=== PATIENT | male | born 1980 | race Asian ===

== ENCOUNTER 2017-12-08 15:14 | Emergency (ER) | payer OTHER ==
[2017-12-08 16:55] LABS: ABS Basophils 0.1 10^3/ul (0-0.2); ABS Eosinophils 0.1 10^3/ul (0-0.6); ABS Lymphocytes 1.2 10^3/ul (1.0-4.8); ABS Monocytes 0.3 10^3/ul (0-0.8); ABS Neutrophils 6.5 10^3/ul (1.5-7.7); ABS Nucleated RBC 0 10^3/ul; Eosinophil % 1.7 % (0-6); Hematocrit 43 % (42-52); Hemoglobin 14.4 g/dl (14.0-18.0); Lymphocyte % 14.8 % (25-47); Mean Corpuscular HGB Conc 33 g/dl (31-36); Mean Corpuscular Hemoglobin 27 pg (27-31); Mean Corpuscular Volume 81 fL (80-94); Mean Platelet Volume 7.3 um3 (7.4-10.4); Nucleated Red Blood Cells % 0; Platelet Count 239 10^3/ul (150-450); Red Blood Count 5.31 10^6/ul (4.0-5.4); Red Cell Distribution Width 14 % (10.5-15); White Blood Count 8.3 10^3/ul (3.5-10.8)
[2017-12-08 17:19] LABS: EGFR Non-African American 91.6 (>60)
[2017-12-08 17:33] LABS: Urine Appearance Cloudy; Urine Blood 3+ (Negative); Urine Color Amber; Urine Ketones Negative (Negative); Urine Protein 1+(30 mg/dL) (Negative); Urine Specific Gravity 1.024 (1.010-1.030); Urine Urobilinogen Negative (Negative)
[2017-12-08] MEDS ORDERED: NS 0.9% 1000 ML* 1,000 ML IV ONE (17:37)
[2017-12-08] MEDS ORDERED: Ketorolac INJ* 30 MG/ML 1 ML VIAL IV ONE (17:37)
--- NOTE | 2017-12-08 18:54 | RAD ---
CLINICAL HISTORY: Left flank pain COMPARISON: None TECHNIQUE: Multiple contiguous axial CT scans were obtained of the abdomen and pelvis, without intravenous contrast enhancement. Coronal and sagittal multiplanar reformations are submitted for review. Oral contrast was not administered. FINDINGS: The study is limited by the lack of intravenous contrast. This limits evaluation of the solid organs and vasculature. LUNG BASES: The lung bases are clear. LIVER: The liver is normal in shape, size, contour, and attenuation. BILE DUCTS: There is no intrahepatic or extrahepatic biliary dilatation. GALLBLADDER: The gallbladder is normal, without pericholecystic inflammatory change. PANCREAS: The pancreas is normal, without mass or ductal dilatation. SPLEEN: Normal in size and appearance. UPPER GI TRACT: Evaluation of the gastrointestinal tract is limited by incomplete gastric distention. The upper GI tract is unremarkable. SMALL BOWEL AND MESENTERY: The small bowel is normal in contour, course, and caliber. There is no obstruction or dilatation. COLON: The colon is normal in contour, course, caliber. There is no pericolonic inflammatory change. ADRENALS: Normal bilaterally. KIDNEYS: There is a 0.4 cm calculus of the left ureter. There is trace pelviectasis and hydroureter. BLADDER: The bladder is smooth in contour. PELVIC ORGANS: The prostate gland is normal. The seminal vesicles are symmetric. AORTA: The aorta is normal. IVC: Unremarkable LYMPH NODES: There is no lymphadenopathy by size criteria. ABDOMINAL WALL: There is no evidence for abdominal wall hernia. BONES AND SOFT TISSUES: Mild degenerative changes are noted at L5-S1. OTHER: None IMPRESSION: 0.4 CM PROXIMAL LEFT URETERAL STONE WITH VERY MINIMAL HYDRONEPHROSIS.
--- NOTE | 2017-12-08 19:05 | ED ---
Leonard Steel Rebecca, scribed for Shira Tuckeruel on 12/08/17 at 1738 . Abdominal Pain/Male - HPI Summary HPI Summary: Pt is a 37 y/o M who presents to ED c/o LLQ and L flank pain. Sx began suddenly at 1430 and has been intermittent and waxing and waning in intensity. Pain is currently moderate, ranked 4/10, though previously it was severe. Sx aggravated and alleviated by nothing. Additionally c/o hematuria. Denies N/V, increased urinary frequency, fever, scrotal swelling and pain. No PMHx kidney stones. - History of Current Complaint Chief Complaint: EDFlankPain Stated Complaint: FLANK PAIN Time Seen by Provider: 12/08/17 17:09 Hx Obtained From: Patient Onset/Duration: Lasting Hours, Still Present Timing: Intermittent Severity Initially: Severe Severity Currently: Mild Pain Intensity: 4 Pain Scale Used: 0-10 Numeric Location: Discrete At: LLQ, Flank - Left Aggravating Factor(s): Nothing Alleviating Factor(s): Nothing Associated Signs And Symptoms: Positive: Other - Hematuria. Negative: Nausea, Vomiting - Allergies/Home Medications Allergies/Adverse Reactions: Allergies Allergy/AdvReac Type Severity Reaction Status Date / Time No Known Allergies Allergy Verified 12/08/17 15:18 Home Medications: Home Medications Metoprolol Succinate XL TAB* [Toprol XL TAB*] 25 mg PO DAILY 12/08/17 [History Confirmed 12/08/17] PMH/Surg Hx/FS Hx/Imm Hx Cardiovascular History: Reports: Hx Hypertension History: Denies: Hx Kidney Stones - Immunization History Immunizations Up to Date: Yes Infectious Disease History: No Infectious Disease History: Denies: Traveled Outside the [place] in Last 30 Days - Family History Known Family History: Positive: Hypertension, Diabetes - Social History Alcohol Use: None Substance Use Type: Reports: None Smoking Status (MU): Never Smoked Tobacco Review of Systems Negative: Fever Positive: Abdominal Pain - LLQ. Negative: Vomiting, Nausea Positive: flank pain - Left, hematuria, other - NEGATIVE: Scrotal swelling and pain. Negative: frequency All Other Systems Reviewed And Are Negative: Yes Physical Exam - Summary Physical Exam Summary: Appearance: Well appearing, no pain distress Skin: warm, dry, reflects adequate perfusion Head/face: normal Eyes: EOMI, [place] ENT: normal Neck: supple, non-tender Respiratory: CTA, breath sounds present Cardiovascular: RRR, pulses symmetrical ~ Abdomen: tenderness in the LLQ, soft Bowel: present Musculoskeletal: normal, strength/ROM intact Neuro: normal, sensory motor intact, A&Ox3 Triage Information Reviewed: Yes Vital Signs On Initial Exam: Initial Vitals Temp Pulse Resp BP Pulse Ox 97.5 F 74 15 174/107 97 12/08/17 15:16 12/08/17 15:16 12/08/17 15:16 12/08/17 15:16 12/08/17 15:16 Vital Signs Reviewed: Yes Diagnostics - Vital Signs Vital Signs Temp Pulse Resp BP Pulse Ox 12/08/17 15:16 97.5 F 74 15 174/107 97 - Laboratory Lab Results: Lab Results 12/08/17 12/08/17 12/08/17 Range/Units 16:46 16:46 17:00 WBC 8.3 (3.5-10.8) 10^3/ul RBC 5.31 (4.0-5.4) 10^6/ul Hgb 14.4 (14.0-18.0) g/dl Hct 43 (42-52) % MCV 81 (80-94) fL MCH 27 (27-31) pg MCHC 33 (31-36) g/dl RDW 14 (10.5-15) % Plt Count 239 (150-450) 10^3/ul MPV 7.3 L (7.4-10.4) um3 Neut % (Auto) 78.7 (38-83) % Lymph % (Auto) 14.8 L (25-47) % [place] % (Auto) 4.1 (0-7) % Eos % (Auto) 1.7 (0-6) % Baso % (Auto) 0.7 (0-2) % Absolute Neuts (auto) 6.5 (1.5-7.7) 10^3/ul Absolute Lymphs (auto) 1.2 (1.0-4.8) 10^3/ul Absolute Monos (auto) 0.3 (0-0.8) 10^3/ul Absolute Eos (auto) 0.1 (0-0.6) 10^3/ul Absolute Basos (auto) 0.1 (0-0.2) 10^3/ul Absolute Nucleated RBC 0 10^3/ul Nucleated RBC % 0 Sodium 137 L (139-145) mmol/L Potassium 3.7 (3.5-5.0) mmol/L Chloride 104 (101-111) mmol/L Carbon Dioxide 25 (22-32) mmol/L Anion Gap 8 (2-11) mmol/L BUN 14 (6-24) mg/dL Creatinine 0.92 (0.67-1.17) mg/dL Est GFR ( Amer) 117.8 (>60) Est GFR (Non-Af Amer) 91.6 (>60) BUN/Creatinine Ratio 15.2 (8-20) Glucose 103 H (70-100) mg/dL Calcium 9.0 (8.6-10.3) mg/dL Total Bilirubin 1.20 H (0.2-1.0) mg/dL AST 25 (13-39) U/L ALT 27 (7-52) U/L Alkaline Phosphatase 69 (34-104) U/L Total Protein 7.2 (6.4-8.9) g/dL Albumin 4.3 (3.2-5.2) g/dL Globulin 2.9 (2-4) g/dL Albumin/Globulin Ratio 1.5 (1-3) Urine Color Rose Urine Appearance Cloudy Urine pH 5.0 (5-9) Ur Specific [place] 1.024 (1.010-1.030) Urine Protein 1+(30 mg/dl) A (Negative) Urine Ketones Negative (Negative) Urine Blood 3+ A (Negative) Urine Nitrate Negative (Negative) Urine Bilirubin Negative (Negative) Urine Urobilinogen Negative (Negative) Ur Leukocyte Esterase Negative (Negative) Urine WBC (Auto) Absent (Absent) Urine RBC (Auto) 3+(>10/hpf) A (Absent) Urine Bacteria Absent (Absent) Urine Glucose Negative (Negative) Result Diagrams: 12/08/17 16:46 12/08/17 16:46 Lab Statement: Any lab studies that have been ordered have been reviewed, and results considered in the medical decision making process. - CT CT Abd/Pel CT Interpretation: Positive (See Comments) - 0.4 CM PROXIMAL LEFT URETERAL STONE WITH VERY MINIMAL HYDRONEPHROSIS. ED physician reviewed this report. CT Interpretation Completed By: Radiologist Re-Evaluation - Re-Evaluation First Eval Re-Evaluation Time: 18:57 Change: Improved Comment: Discussed results with the pt. At this point, pt is in no pain. Abdominal Pain Fem Course/Dx - Course Assessment/Plan: Pt is a 37 y/o M who presents to ED c/o LLQ and L flank pain. Sx began suddenly at 1430 and has been intermittent and waxing and waning in intensity. Pain is currently moderate, ranked 4/10, though previously it was severe. Sx aggravated and alleviated by nothing. Additionally c/o hematuria. Denies N/V, increased urinary frequency, fever, scrotal swelling and pain. No PMHx kidney stones. Blood work and UA were done. CT Abd/Pel revealed 0.4 cm proximal left ureteral stone with very minimal hydronephrosis. In the ED course , pt received Toradol and fluids which improved sx. Pt will be D/C to home with Dx of renal calculus. - Diagnoses Differential Diagnosis/HQI/PQRI: Constipation, Renal Colic, Ureteral Stone, Urinary Tract Infection Provider Diagnoses: Renal calculus Discharge - Sign-Out/Discharge Documenting (check all that apply): Discharge/Admit/Transfer - Discharge - Discharge Plan Condition: Stable Disposition: HOME Prescriptions: Oxycodone HCl/Acetaminophen [Percocet] 1 tab PO TID #15 tab MDD 3 Tamsulosin HCl [Flomax] 0.4 mg PO Q6HR #15 cap.er.24h Patient Education Materials: Kidney Stones (ED) Referrals: Jasson Lara MD [Primary Care Provider] - 3 Days Additional Instructions: RETURN TO ED FOR ANY NEW OR WORSENING SYMPTOMS. - Billing Disposition and Condition Condition: STABLE Disposition: HOME The documentation as recorded by the Leonard boles Rebecca accurately reflects the service I personally performed and the decisions made by , Angel Tucker.
[2017-12-08 19:31] VITALS: BP 150/99
== END 2017-12-08 19:31 | disposition home or self-care (01) ==
LOC: ED 15:14
DX: N20.0 Calculus of kidney (principal); R10.30 Lower abdominal pain, unspecified; R31.9 Hematuria, unspecified
CPT/HCPCS: 36415; 74176; 80053; 81003; 81015; 85025; 96374; 99283; J1885